=== PATIENT | male | born 1955 | race Caucasian/White ===

== ENCOUNTER 2024-05-08 09:29 | Day surgery (SDC) | payer BC, MEDICARE ==
[2024-05-08] MEDS: Lactated Ringers 1,000 ML IV SCH (09:45)
[2024-05-08] MEDS ORDERED: Propofol 200 MG/20 ML SDV ONE ×2 (10:40→11:36)
[2024-05-08] MEDS ORDERED: fentaNYL 100 MCG/2 ML SDV ONE (10:40)
[2024-05-08] MEDS ORDERED: Midazolam 1 MG/ML 2 ML SDV ONE (10:41)
== END 2024-05-08 12:55 | disposition home or self-care (01) ==
LOC: VM.SDS 09:29
PROVIDERS: ATTEND Family Medicine
DX: Z12.11 Encounter for screening for malignant neoplasm of colon (principal); D12.6 Benign neoplasm of colon, unspecified; K63.5 Polyp of colon; Z86.0100 Personal history of colon polyps, unspecified; Z80.0 Family history of malignant neoplasm of digestive organs; Z87.891 Personal history of nicotine dependence
CPT/HCPCS: 00811; 88305; J2250; J2704; J3010; J7120